=== PATIENT | female | born 1990 | race Two or more races ===

== ENCOUNTER 2022-11-11 10:49 | Emergency (ER) | payer OTHER ==
[~2022-11-11] VITALS: Ht 154.9 cm; Wt 50.8 kg
[2022-11-11 13:53] LABS: HEMATOCRIT 41.1 % (36.0-45.00); HEMOGLOBIN 13.7 g/dL (12.0-15.00); MEAN CELL VOLUME 91.2 fL (80.00-100.00); MEAN CORPUSCULAR HEMOGLOBIN 30.5 pg (27.00-32.0); MEAN CORPUSCULAR HGB CONC 33.4 g/dl (32.0-36.0); PLATELET COUNT 233 K/uL (150-450); RED BLOOD COUNT 4.51 M/uL (4.00-6.00); RED CELL DISTRIBUTION WIDTH 13.9 % (11.5-14.5)
[2022-11-11 14:34] LABS: CALCIUM 8.9 mg/dL (8.5-10.1); CREATININE SERUM 0.59 mg/dL (0.55-1.02); GFR 120.5; POTASSIUM 3.65 mEq/L (3.5-5.1)
== END 2022-11-11 17:45 | disposition home or self-care (01) ==
LOC: ER 10:49
PROVIDERS: General Practice
DX: O20.0 Threatened abortion (principal); Z3A.13 13 weeks gestation of pregnancy

== ENCOUNTER 2022-11-25 15:42 | Outpatient (CLI) | payer OTHER | END 2022-11-25 16:05 | disposition home or self-care (01) | LOC: PRENATAL 15:42 | PROVIDERS: ATTEND Obstetrics & Gynecology Maternal & Fetal Medicine | DX: O26.849 Uterine size-date discrepancy, unspecified trimester (principal); Z36.0 Encounter for antenatal screening for chromosomal anomalies; O34.10 Maternal care for benign tumor of corpus uteri, unspecified trimester; Z3A.15 15 weeks gestation of pregnancy ==

== ENCOUNTER 2022-12-29 14:06 | Outpatient (CLI) | payer OTHER | END 2022-12-29 14:07 | disposition home or self-care (01) | LOC: PRENATAL 14:06 | PROVIDERS: ATTEND Obstetrics & Gynecology Maternal & Fetal Medicine | DX: O35.3XX0 Maternal care for (suspected) damage to fetus from viral disease in mother, not applicable or unspecified (principal); O44.00 Complete placenta previa NOS or without hemorrhage, unspecified trimester; O34.10 Maternal care for benign tumor of corpus uteri, unspecified trimester; Z3A.20 20 weeks gestation of pregnancy ==

== ENCOUNTER → 2023-03-23 10:54 | Outpatient (CLI) | payer OTHER | END | disposition home or self-care (01) | LOC: PRENATAL 10:54 | PROVIDERS: ATTEND Obstetrics & Gynecology Maternal & Fetal Medicine | DX: O26.849 Uterine size-date discrepancy, unspecified trimester (principal); O36.8199 Decreased fetal movements, unspecified trimester, other fetus; O34.10 Maternal care for benign tumor of corpus uteri, unspecified trimester; Z3A.32 32 weeks gestation of pregnancy ==

== ENCOUNTER 2023-05-09 05:39 | Inpatient (IN) | payer OTHER ==
[~2023-05-09] VITALS: Ht 160 cm; Wt 66.2 kg
[2023-05-09] MEDS ORDERED: RINGERS SOLUTION,LACTATED 1,000 ML IV SCH (05:45)
[2023-05-09] MEDS ORDERED: ERYTHROMYCIN BASE 1 GM TUBE OP ONE ×2 (05:46→07:00)
[2023-05-09] MEDS ORDERED: OXYTOCIN 20 UNITS/1000ML RL PIGGYBAG IV ONE ×2 (05:46→07:00)
[2023-05-09] MEDS ORDERED: CHLORHEXIDINE GLUCONATE 120 ML BOTTLE TOP ONE ×2 (05:46→07:00)
[2023-05-09] MEDS ORDERED: PRENATAL CAPLE1 EAC1 PO (06:02)
[2023-05-09] MEDS ORDERED: OXYTOCIN 20 UNITS/500ML RL PIGGYBAG IV ONE (06:19)
[2023-05-09] MEDS ORDERED: OxyCODONE HCL/APAP UD (PERCOCET) PO PRN (07:00)
[2023-05-09] MEDS ORDERED: ACETAMINOPHEN 325 MG TABLET PO PRN (07:00)
[2023-05-09 07:42] LABS: HEMATOCRIT 36.9 % (36.0-45.00); HEMOGLOBIN 12.3 g/dL (12.0-15.00); MEAN CELL VOLUME 84.8 fL (80.00-100.00); MEAN CORPUSCULAR HEMOGLOBIN 28.3 pg (27.00-32.0); MEAN CORPUSCULAR HGB CONC 33.4 g/dl (32.0-36.0); PLATELET COUNT 246 K/uL (150-450); RED BLOOD COUNT 4.35 M/uL (4.00-6.00); RED CELL DISTRIBUTION WIDTH 14.7 % (11.5-14.5)
[2023-05-09 08:07] LABS: INR < 0.93; PARTIAL THROMBOPLASTIN TIME 29.9 SECONDS (22.0-34.0); PROTHROMBIN TIME 9.8 SECONDS (9.0-11.5)
[2023-05-09] MEDS ORDERED: CARBOPROST TROMETHAMINE 250 MCG/ML AMPUL IM STA (08:14)
[2023-05-09] MEDS ORDERED: CARBOPROST TROMETHAMINE 250 MCG/ML AMPUL IM ONE (08:15)
[2023-05-09 08:26] LABS: ALBUMIN 2.7 gm/dL (3.4-5.0); BILIRUBIN TOTAL 0.37 mg/dL (0.3-1.2); CALCIUM 8.7 mg/dL (8.5-10.1); CREATININE SERUM 0.7 mg/dL (0.55-1.02); GFR 98.25; GLOBULINA 3.5 G/DL (2.4-3.5); POTASSIUM 3.87 mEq/L (3.5-5.1); TOTAL PROTEIN 6.2 gm/dL (6.4-8.2)
[2023-05-09] MEDS ORDERED: HYDROCORTISONE 2.5% 30 GM TUBE RECTAL SCH (09:00)
[2023-05-09] MEDS ORDERED: BENZOCAINE/MENTHOL 90 ML BOTTLE TOP SCH (09:00)
[2023-05-09 12:29] LABS: HEMATOCRIT 35.8 % (36.0-45.00); HEMOGLOBIN 11.9 g/dL (12.0-15.00); MEAN CELL VOLUME 82.7 fL (80.00-100.00); MEAN CORPUSCULAR HEMOGLOBIN 27.4 pg (27.00-32.0); MEAN CORPUSCULAR HGB CONC 33.2 g/dl (32.0-36.0); PLATELET COUNT 244 K/uL (150-450); RED BLOOD COUNT 4.33 M/uL (4.00-6.00); RED CELL DISTRIBUTION WIDTH 14.8 % (11.5-14.5)
[2023-05-10] MEDS ORDERED: FF) RHO(D) IMMUNE GLOBULIN (POM) IM SCH (18:00)
== END 2023-05-11 12:40 | disposition home or self-care (01) | DRG 807 ==
LOC: OB/GYN 05:39 → LDR 05:39 → OB/GYN 06:56
PROVIDERS: Specialist; ADMIT Obstetrics & Gynecology; ATTEND Obstetrics & Gynecology
PROC: 10E0XZZ Delivery of Products of Conception, External Approach (ICD-10-PCS; principal; 2023-05-09)
PROC: 4A1HXCZ Monitoring of Products of Conception, Cardiac Rate, External Approach (ICD-10-PCS; 2023-05-09)
DX: O80 Encounter for full-term uncomplicated delivery (principal); Z37.0 Single live birth; Z3A.39 39 weeks gestation of pregnancy; Z20.822 Contact with and (suspected) exposure to COVID-19